=== PATIENT | male | born 1940 | race American Indian/Alaskan Native ===

== ENCOUNTER 2017-10-18 15:17 | Inpatient (IN) | payer MEDICARE ==
[2017-10-19 02:47] VITALS: BMI 26.7
--- NOTE | 2017-10-19 05:09 | CP.PCM.HP ---
History of Present Illness - History of Present Illness History of Present Illness: CC: s/p L sided CVA with speech deficit, R sided weakness HPI: This is a 76 y/o male with known CAD, HTN, HLD, DM2, and newly dx'ed A fib. He had presented [place] [facility] [place]ided facial droop/weakness and speech difficulties on 10/17. He was diagnosed with acute L frontoparietal CVA and was admitted to the hospital. Patient did not have TPA administered nor any acute interventional procedure. He had full workup there, and appears to have been dx' ed at that time with the A fib. He has improved somewhat since that time, and presents here for rehab. Denies CP, SOB, f/c/n/v/d. Still has RUE and RLE weakness, difficulty with speech, and difficulty with swallowing. ROS: 14 systems reviewed, negative other than HPI MHx: HTN, HLD, DM2, CAD, A fib SHx: CABG in the past Allergies: NKDA Medications: per discharge list Family Hx: no relevant findings Social Hx: Lives with family, no tobacco or EtOH Surrogate: , info in chart Present on Admission - Present on Admission Any Indicators Present on Admission: No Past Patient History - Past Medical History & Family History Past Medical History?: Yes - Past Social History Smoking Status: Never Smoked - CARDIAC Hx Hypercholesterolemia: Yes Hx Hypertension: Yes Other/Comment: New onset paroxysmal Afib. - NEUROLOGICAL HX Cerebrovascular Accident: Yes - HEENT Other/Comment: wears eyeglasses. - ENDOCRINE/METABOLIC Hx Diabetes Mellitus Type 2: Yes - HEMATOLOGICAL/ONCOLOGICAL Hx AIDS: No Hx Human Immunodeficiency Virus (HIV): No - MUSCULOSKELETAL/RHEUMATOLOGICAL Hx Falls: Yes (x1 at home 10/12/2017) Hx Unsteady Gait: Yes - GASTROINTESTINAL Hx Gastroesophageal Reflux: Yes - PSYCHIATRIC Hx Substance Use: No - SURGICAL HISTORY Hx Coronary Artery Bypass Graft: Yes (in 2007) - ANESTHESIA Hx Anesthesia: Yes Hx Anesthesia Reactions: No Hx Malignant Hyperthermia: No Has any member of the family had a problem w/ anesthesia?: No Meds Allergies/Adverse Reactions: Allergies Allergy/AdvReac Type Severity Reaction Status Date / Time No Known Allergies Allergy Verified 10/19/17 02:46 Physical Exam - Constitutional Appears: No Acute Distress - Head Exam Head Exam: ATRAUMATIC, NORMOCEPHALIC - Eye Exam Eye Exam: EOMI, PERRL - ENT Exam ENT Exam: Mucous Membranes Moist - Neck Exam Neck exam: Positive for: Full Rom - Respiratory Exam Respiratory Exam: Clear to Auscultation Bilateral, NORMAL BREATHING PATTERN - Cardiovascular Exam Cardiovascular Exam: REGULAR RHYTHM, +S1, +S2 - GI/Abdominal Exam GI & Abdominal Exam: Normal Bowel Sounds, Soft - Extremities Exam Additional comments: RUE and RLE weakness compared to L; still 5/5 strength - Neurological Exam Neurological exam: Alert, CN II-XII Intact, Oriented x3 Additional comments: some speech difficulties - Psychiatric Exam Psychiatric exam: Normal Affect, Normal Mood - Skin Skin Exam: Dry, Warm Results - Vital Signs Recent Vital Signs: Last Vital Signs Temp Pulse 65 10/19/17 02:53 Resp 20 10/19/17 02:53 BP Pulse Ox 98 10/19/17 02:53 Assessment & Plan (1) Status post cerebrovascular accident Assessment and Plan: 76 y/o male with CVA presenting for rehab. 1) s/p CVA -Cont ASA -Rehab consult/PT 2) DM2 -- DM diet, SSI, Accuchecks for now; start LA insulin in AM 3) A fib -- Patient to start Apixiban in 2 weeks per d/c summary from [facility] [place] 4) HTN -- Cont BP medications: hydralazine, valsartan 5) DVT PPx- SQ Lovenox for now Status: Acute (2) DM2 (diabetes mellitus, type 2) Status: Acute (3) HTN (hypertension) Status: Acute (4) A-fib Status: Acute (5) DVT prophylaxis Status: Acute
[2017-10-19] MEDS: Insulin Lispro (humaLOG) 100 Units/ml Inj SC SCH ×4 (06:52→21:26)
[2017-10-19 07:07] LABS: BLOOD UREA NITROGEN 15 mg/dl (9-20); CALCIUM 9.2 mg/dL (8.4-10.2); GFR AFRICAN-AMERICAN > 60; GFR NON-AFRICAN AMERICAN > 60
[2017-10-19] MEDS ORDERED: INSULIN ASPART PROT SC SCH (07:30)
[2017-10-19] MEDS ORDERED: INSULN ASP SC SCH (07:30)
[2017-10-19] MEDS ORDERED: INSULIN ASPART 100 UNIT SC SCH (07:30)
[2017-10-19] MEDS: Insulin Lispro Mix 75/25 100 units/ml (HumaLog) 10ml SC SCH ×2 (08:12→17:36)
[2017-10-19] MEDS: Enoxaparin 40 mg Syringe SC SCH (08:54)
[2017-10-19] MEDS ORDERED: Patient's Own Med (Valsartan [Diovan] 320 MG) PO SCH (09:00)
[2017-10-19] MEDS ORDERED: Patient's Own Med (Famotidine [Pepcid] 40 MG) PO SCH (09:00)
--- NOTE | 2017-10-19 16:45 | PCM.OPOC ---
Physiatry Overall Plan of Care - Overall Plan of Care Estimated Length of Stay in Weeks: 3 Rehab Impairment: Mobility, Gait, Speech, Balance, Coordination Etiologic Diagnosis: Cerebrovascular Accident Rehab/Medical Prognosis: Fair - Anticipated Interventions Physical Therapy:: Yes Occupational Therapy:: Yes Speech Therapy:: Yes Recreational Therapy:: Yes - Therapy Goals Bed Mobility: Contact Guard Ambulation: Supervision Functional Positional Changes:: Supervision - Discharge Plan Discharge Destination: Home
--- NOTE | 2017-10-19 16:47 | CP.PCM.CON ---
History of Present Illness - History of Present Illness History of Present Illness: Dr Veloz PMR consultation on Colin Mishra born 1940, who has been admitted to [facility] for acute inpatient rehabilitation. He is right hand dominant and was independent in ADLs and ambulation with no speech or language deficits [employer]. He had an acute onset of right HP UE>LE and diagnosed with left CVA. MCA distribution. + dysphagia and dysarthria noted Review of Systems - Constitutional Constitutional: absent: Anorexia, Chills - EENT Eyes: absent: Change in Vision Ears: absent: Ear Pain Nose/Mouth/Throat: absent: Nasal Congestion - Cardiovascular Cardiovascular: absent: Chest Pain - Respiratory Respiratory: absent: Dyspnea, Stridor - Gastrointestinal Gastrointestinal: absent: Belching, Bloating - Musculoskeletal Musculoskeletal: absent: Back Pain - Integumentary Integumentary: absent: Bleeding Lesions - Neurological Neurological: Weakness (right UE>LE). absent: Abnormal Movements - Psychiatric Psychiatric: absent: Anxiety Past Patient History - Past Medical History & Family History Past Medical History?: Yes - Past Social History Smoking Status: Never Smoked Alcohol: None Drugs: Denies Home Situation {Lives}: With Family - CARDIAC Hx Cardiac Disorders: Yes Hx Hypercholesterolemia: Yes Hx Hypertension: Yes - NEUROLOGICAL HX Cerebrovascular Accident: Yes - HEENT Other/Comment: wears eyeglasses. - ENDOCRINE/METABOLIC Hx Diabetes Mellitus Type 2: Yes - HEMATOLOGICAL/ONCOLOGICAL Hx AIDS: No Hx Human Immunodeficiency Virus (HIV): No - MUSCULOSKELETAL/RHEUMATOLOGICAL Hx Falls: Yes (x1 at home 10/12/2017) Hx Unsteady Gait: Yes - GASTROINTESTINAL Hx Gastroesophageal Reflux: Yes - PSYCHIATRIC Hx Substance Use: No - SURGICAL HISTORY Hx Coronary Artery Bypass Graft: Yes (in 2007) - ANESTHESIA Hx Anesthesia: Yes Hx Anesthesia Reactions: No Hx Malignant Hyperthermia: No Has any member of the family had a problem w/ anesthesia?: No Meds Allergies/Adverse Reactions: Allergies Allergy/AdvReac Type Severity Reaction Status Date / Time No Known Allergies Allergy Verified 10/19/17 02:46 - Medications Medications: Current Medications Acetaminophen (Tylenol 325mg Tab) 650 mg PO Q6H PRN PRN Reason: Pain, moderate (4-7) Amlodipine Besylate (Norvasc) 10 mg PO DAILY [facility] Last Admin: 10/19/17 08:54 Dose: 10 mg Aspirin (Aspirin Chewable) 81 mg PO DAILY [facility] Last Admin: 10/19/17 08:57 Dose: 81 mg Atorvastatin Calcium (Lipitor) 20 mg PO HS [facility] Enoxaparin Sodium (Lovenox) 40 mg SC DAILY [facility] PRN Reason: Protocol Last Admin: 10/19/17 08:54 Dose: 40 mg Famotidine (Pepcid) 40 mg PO DAILY [facility] Last Admin: 10/19/17 08:56 Dose: 40 mg Hydralazine HCl (Apresoline) 50 mg PO Q8@0100,0900,1700 [facility] Last Admin: 10/19/17 08:53 Dose: 50 mg Insulin Human Lispro (Humalog) 0 units SC ACHS [facility] PRN Reason: Protocol Last Admin: 10/19/17 12:09 Dose: 3 units Insulin Lispro Protam/Lispro Human (Humalog Mix 75/25) 10 units SC ACBD [facility] Last Admin: 10/19/17 08:12 Dose: 10 units Lidocaine HCl (Lidocaine 2% Viscous) 15 ml PO Q6H PRN PRN Reason: pain - mouth sore Valsartan (Diovan) 320 mg PO DAILY [facility] Last Admin: 10/19/17 08:53 Dose: 320 mg Zolpidem Tartrate (Ambien) 5 mg PO HS PRN PRN Reason: Insomnia Physical Exam - Constitutional Appears: Non-toxic, No Acute Distress - Head Exam Head Exam: ATRAUMATIC, NORMAL INSPECTION - Eye Exam Eye Exam: EOMI - ENT Exam ENT Exam: Mucous Membranes Moist - Respiratory Exam Respiratory Exam: NORMAL BREATHING PATTERN. absent: Chest Wall Tenderness - Cardiovascular Exam Cardiovascular Exam: REGULAR RHYTHM - GI/Abdominal Exam GI & Abdominal Exam: absent: Distended - Extremities Exam Extremities exam: Negative for: calf tenderness - Neurological Exam Neurological exam: Alert, Oriented x3 (+ dysarthria) - Psychiatric Exam Psychiatric exam: Normal Affect, Normal Mood - Skin Skin Exam: Warm Results - Vital Signs Recent Vital Signs: Last Vital Signs Temp 97.7 F 10/19/17 08:32 Pulse 60 10/19/17 08:54 Resp 22 10/19/17 08:32 BP 142/51 L 10/19/17 08:54 Pulse Ox 99 10/19/17 08:40 - Labs Result Diagrams: 10/19/17 05:25 Labs: Laboratory Results - last 24 hr 10/19/17 10/19/17 10/19/17 05:25 05:52 11:40 Sodium 138 Potassium 4.2 Chloride 102 Carbon Dioxide 26 Anion Gap 14 BUN 15 Creatinine 0.9 Est GFR ( Amer) > 60 Est GFR (Non-Af Amer) > 60 POC Glucose (mg/dL) 121 H 241 H Random Glucose 127 H Calcium 9.2 10/19/17 16:17 Sodium Potassium Chloride Carbon Dioxide Anion Gap BUN Creatinine Est GFR ( Amer) Est GFR (Non-Af Amer) POC Glucose (mg/dL) 202 H Random Glucose Calcium Assessment & Plan - Assessment and Plan (Free Text) Assessment: 76 year old right hand dominant male, previously independent with multiple risk factors. + left CVA, MCA distribution, right HP PT/OT to continue to help increase functional independence Team conference for d/c planning Pain: controlled Vascular: no evidence of DVT GI: No evidence of constipation or diarrhea Patient is an excellent acute rehabilitation candidate and will have focused speech therapy, PT, OT and recreational therapy to help facilitate a safe and appropriate d/c plan Impairment code: 01.2
[2017-10-20 06:16] LABS: HEMOGLOBIN 13.3 g/dL (12.0-18.0); MEAN CORPUSCULAR HEMOGLOBIN 30.4 pg (27.0-31.0); MEAN CORPUSCULAR HGB CONC 33.1 g/dL (33.0-37.0); RBC 4.37 Mil/uL (4.40-5.90); RED CELL DISTRIBUTION WIDTH 14.2 % (11.5-14.5); WHITE BLOOD COUNT 6.9 K/uL (4.8-10.8)
[2017-10-20] MEDS: Insulin Lispro (humaLOG) 100 Units/ml Inj SC SCH ×4 (06:31→21:31)
[2017-10-20] MEDS: Insulin Lispro Mix 75/25 100 units/ml (HumaLog) 10ml SC SCH ×2 (07:50→16:46)
[2017-10-20] MEDS: Enoxaparin 40 mg Syringe SC SCH (08:17)
--- NOTE | 2017-10-20 17:15 | CP.PCM.PN ---
Subjective - Date & Time of Evaluation Date of Evaluation: 10/20/17 Time of Evaluation: 17:14 - Subjective Subjective: Patient seen in the room in good spirits happy with first day in therapy and worked hard denies sob/cp denies joint pain dysarthria appears to have improved somewhat since last night as well Objective - Vital Signs/Intake and Output Vital Signs (last 24 hours): Temp Pulse Resp BP Pulse Ox 97.6 F 58 L 19 133/59 L 98 10/20/17 08:16 10/20/17 15:05 10/20/17 08:16 10/20/17 13:46 10/20/17 15:05 - Medications Medications: Current Medications Acetaminophen (Tylenol 325mg Tab) 650 mg PO Q6H PRN PRN Reason: Pain Scale 4-10. Amlodipine Besylate (Norvasc) 10 mg PO DAILY [facility] Last Admin: 10/20/17 08:17 Dose: 10 mg Aspirin (Aspirin Chewable) 81 mg PO DAILY [facility] Last Admin: 10/20/17 08:17 Dose: 81 mg Atorvastatin Calcium (Lipitor) 20 mg PO HS [facility] Last Admin: 10/19/17 21:32 Dose: 20 mg Enoxaparin Sodium (Lovenox) 40 mg SC DAILY [facility] PRN Reason: Protocol Last Admin: 10/20/17 08:17 Dose: 40 mg Famotidine (Pepcid) 40 mg PO DAILY [facility] Last Admin: 10/20/17 08:17 Dose: 40 mg Hydralazine HCl (Apresoline) 50 mg PO Q8@0600,1400,2200 [facility] Last Admin: 10/20/17 13:46 Dose: 50 mg Insulin Human Lispro (Humalog) 0 units SC ACHS [facility] PRN Reason: Protocol Last Admin: 10/20/17 16:54 Dose: 3 units Insulin Lispro Protam/Lispro Human (Humalog Mix 75/25) 10 units SC ACBD [facility] Last Admin: 10/20/17 16:46 Dose: 10 units Lidocaine HCl (Lidocaine 2% Viscous) 15 ml PO Q6H PRN PRN Reason: pain - mouth sore Valsartan (Diovan) 320 mg PO DAILY [facility] Last Admin: 10/20/17 08:17 Dose: 320 mg Zolpidem Tartrate (Ambien) 5 mg PO HS PRN PRN Reason: Insomnia Last Admin: 10/19/17 21:57 Dose: 5 mg - Labs Labs: 10/20/17 05:40 10/19/17 05:25
[2017-10-21] MEDS: Insulin Lispro (humaLOG) 100 Units/ml Inj SC SCH ×4 (06:30→21:16)
[2017-10-21] MEDS: Insulin Lispro Mix 75/25 100 units/ml (HumaLog) 10ml SC SCH ×2 (08:58→17:08)
[2017-10-21] MEDS: Enoxaparin 40 mg Syringe SC SCH (08:58)
--- NOTE | 2017-10-21 14:49 | PN ---
DAILY PROGRESS NOTE DATE: 10/20/2017 SUBJECTIVE: The patient is seen today 10/20/2017. He is not in any cardiopulmonary distress. OBJECTIVE: VITAL SIGNS: Blood pressure 120/52, temperature 97.9, respiratory rate 20, and pulse 56. HEENT: Pupils equal and reactive to light. Normal appearing mucosa of the conjunctivae, oropharynx, and nasal membrane mucosa. NECK: Supple. No JVD. No carotid bruit. No lymph node. No thyromegaly. CHEST AND LUNGS: Bilateral symmetrical expansion. Good air exchange. No rales. No rhonchi. CARDIOVASCULAR: PMI not localized. S1 and S2. No additional sounds. ABDOMEN: Normoactive bowel sounds. No tenderness. No organomegaly. No masses. EXTREMITIES: No cyanosis. No clubbing. No edema. CENTRAL NERVOUS SYSTEM: Alert, awake, and oriented x2. The patient has right-sided hemiplegia with distal right upper extremity affected more than the proximal muscles. ASSESSMENT: Cerebrovascular accident, type 2 diabetes mellitus, hypertension, and paroxysmal atrial fibrillation. PLAN: Continue current medications and as per neurology recommendation, we will start anticoagulation 2 weeks after the acute CVA. Continue physical therapy and occupational therapy. Curt Harper MD
--- NOTE | 2017-10-21 17:42 | CP.PCM.PN ---
Subjective - Date & Time of Evaluation Date of Evaluation: 10/21/17 Time of Evaluation: 17:40 - Subjective Subjective: Patient seen in the room doing better with right upper extremity AROM denies cp/sob very appreciative of the care continue current care Objective - Vital Signs/Intake and Output Vital Signs (last 24 hours): Temp Pulse Resp BP Pulse Ox 98.1 F 52 L 18 130/70 97 10/21/17 07:44 10/21/17 13:22 10/21/17 07:44 10/21/17 13:22 10/21/17 10:54 - Medications Medications: Current Medications Acetaminophen (Tylenol 325mg Tab) 650 mg PO Q6H PRN PRN Reason: Pain Scale 4-10. Last Admin: 10/21/17 11:17 Dose: 650 mg Amlodipine Besylate (Norvasc) 10 mg PO DAILY [facility] Last Admin: 10/21/17 12:21 Dose: 10 mg Aspirin (Aspirin Chewable) 81 mg PO DAILY [facility] Last Admin: 10/21/17 08:57 Dose: 81 mg Atorvastatin Calcium (Lipitor) 20 mg PO HS [facility] Last Admin: 10/20/17 21:53 Dose: 20 mg Enoxaparin Sodium (Lovenox) 40 mg SC DAILY [facility] PRN Reason: Protocol Last Admin: 10/21/17 08:58 Dose: 40 mg Famotidine (Pepcid) 40 mg PO DAILY [facility] Last Admin: 10/21/17 08:59 Dose: 40 mg Hydralazine HCl (Apresoline) 50 mg PO Q8@0600,1400,2200 [facility] Last Admin: 10/21/17 13:22 Dose: 50 mg Insulin Human Lispro (Humalog) 0 units SC ACHS [facility] PRN Reason: Protocol Last Admin: 10/21/17 17:09 Dose: 2 units Insulin Lispro Protam/Lispro Human (Humalog Mix 75/25) 10 units SC ACBD [facility] Last Admin: 10/21/17 17:08 Dose: 10 units Lidocaine HCl (Lidocaine 2% Viscous) 15 ml PO Q6H PRN PRN Reason: pain - mouth sore Valsartan (Diovan) 320 mg PO DAILY [facility] Last Admin: 10/21/17 08:58 Dose: 320 mg Zolpidem Tartrate (Ambien) 5 mg PO HS PRN PRN Reason: Insomnia Last Admin: 10/20/17 22:44 Dose: 5 mg - Labs Labs: 10/20/17 05:40 10/19/17 05:25
--- NOTE | 2017-10-21 21:46 | CP.PCM.CON ---
History of Present Illness - History of Present Illness History of Present Illness: I was asked to evalaute patient by Dr Harper. Patient is a 76 year old male with PMH HTN, hypercholesterolemia PAF who presents for rehab. The patient was found to have [place] [facility] [place] MICHELLE was negative for intracardiac thrombus, however given PAF it was recommended that patientbe placed on Eliquis. He will have to wait 2 weeks as per neuro. The patient was noted to be bradycardiac. He denies chest pain. Review of Systems - Constitutional Constitutional: absent: As Per HPI, Anorexia, Chills, Daytime Sleepiness, Excessive Sweating, Fatigue, Fever, Frequent Falls, Headache, Increased Appetite , Lethargy, Malaise, Night Sweats, Snoring, Sleep Apnea, Weight Gain, Weight Loss, Weakness, Other - EENT Eyes: absent: As Per HPI, Blind Spots, Blurred Vision, Change in Vision, Decreased Night Vision, Diplopia, Discharge, Dry Eye, Exophthalmos, Floaters, Irritation, Itchy Eyes, Loss of Peripheral Vision, Pain, Photophobia, Requires Corrective Lenses, Sees Flashes, Spots in Vision, Tunnel Vision, Other Visual Disturbances, Loss of Vision, Other Ears: absent: As Per HPI, Decreased Hearing, Ear Discharge, Ear Pain, Tinnitus, Abnormal Hearing, Disequilibrium, Dizziness, Other Nose/Mouth/Throat: absent: As Per HPI, Epistaxis, Nasal Congestion, Nasal Discharge, Nasal Obstruction, Nasal Trauma, Nose Pain, Post Nasal Drip, Sinus Pain, Sinus Pressure, Bleeding Gums, Change in Voice, Dental Pain, Dry Mouth, Dysphagia, Halitosis, Hoarsness, Lip Swelling, Mouth Lesions, Mouth Pain, Odynophagia, Sore Throat, Throat Swelling, Tongue Swelling, Facial Pain, Neck Pain, Neck Mass, Other - Cardiovascular Cardiovascular: absent: As Per HPI, Acrocyanosis, Chest Pain, Chest Pain at Rest , Chest Pain with Activity, Claudication, Diaphoresis, Dyspnea, Dyspnea on Exertion, Edema, Irregular Heart Rhythm, Pain Radiating to Arm/Neck/Jaw, Leg Edema, Leg Ulcers, Lightheadedness, Orthopnea, Palpitations, Paroxysmal Nocturnal Dyspnea, Pedal Edema, Radiating Pain, Rapid Heart Rate, Slow Heart Rate, Syncope, Other - Respiratory Respiratory: absent: As Per HPI, Cough, Dyspnea, Hemoptysis, Dyspnea on Exertion , Wheezing, Snoring, Stridor, Pain on Inspiration, Chest Congestion, Excessive Mucous Production, Change in Mucous Color, Pain with Coughing, Other - Gastrointestinal Gastrointestinal: absent: As Per HPI, Abdominal Pain, Belching, Bloating, Change in Bowel Habits, Change in Stool Character, Coffee Ground Emesis, Constipation, Cramping, Diarrhea, Dyspepsia, Dysphagia, Early Satiety, Excessive Flatus, Fecal Incontinence, Heartburn, Hematemesis, Hematochezia, Loose Stools, Melena, Nausea, Odynophagia, Temesmus, Vomiting, Other - Genitourinary Genitourinary: absent: As Per HPI, Change in Urinary Stream, Difficulty Urinating, Dysuria, Flank Pain, Hematuria, Pyuria, Nocturia, Urinary Incontinence, Urinary Frequency, Urinary Hesitance, Urinary Urgency, Voiding Freq/Small Amts, Freq UTI, Hx Renal/Bladder Calculi, Hx /Renal Surgery, Bladder Distension, Other - Musculoskeletal Musculoskeletal: absent: As Per HPI, Abnormal Gait, Arthralgias, Atrophy, Back Pain, Deformity, Joint Swelling, Limited Range of Motion, Loss of Height, Muscle Cramps, Muscle Weakness, Myalgias, Neck Pain, Numbness, Radiating Pain into Limb, Stiffness, Tingling, Other - Integumentary Integumentary: absent: As Per HPI, Acne, Alopecia, Bleeding Lesions, Change in Hair, Change in Nails, Change in Pigmentation, Changing Lesions, Dry Skin, Erythema, Furuncle, Hirsutism, Lesions, New Lesions, Non-Healing Lesions, Photosensitivity, Pruritus, Rash, Skin Pain, Skin Ulcer, Sores, Striae, Swelling , Unusual Bruising, Wounds, Jaundice, Other - Neurological Additional comments: RUE weakness - Psychiatric Psychiatric: absent: As Per HPI, Abnormal Sleep Pattern, Anhedonia, Anxiety, Auditory Hallucinations, Behavioral Changes, Change in Appetite, Change in Libido, Confusion, Depression, Difficulty Concentrating, Hallucinations, Homicidal Ideation, Hopelessness, Irritability, Memory Loss, Mood Swings, Panic Attacks, Paranoia, Suicidal Ideation, Visual Hallucinations, Tactile Hallucinations, Other - Endocrine Endocrine: absent: As Per HPI, Change in Body Appearance, Change in Libido, Cold Intolorance, Deepening of Voice, Excessive Sweating, Fatigue, Flushing, Heat Intolorance, Increase in Ring/Shoe/Hat Size, Palpitations, Polydipsia, Polyphagia, Polyuria, Other - Hematologic/Lymphatic Hematologic: absent: As Per HPI, Easy Bleeding, Easy Bruising, Lymphadenopathy, Other Past Patient History - Past Medical History & Family History Past Medical History?: Yes - Past Social History Smoking Status: Never Smoked Alcohol: None Drugs: Denies Home Situation {Lives}: With Family - CARDIAC Hx Cardiac Disorders: Yes Hx Hypercholesterolemia: Yes Hx Hypertension: Yes - NEUROLOGICAL HX Cerebrovascular Accident: Yes - HEENT Other/Comment: wears eyeglasses. - ENDOCRINE/METABOLIC Hx Diabetes Mellitus Type 2: Yes - HEMATOLOGICAL/ONCOLOGICAL Hx AIDS: No Hx Human Immunodeficiency Virus (HIV): No - MUSCULOSKELETAL/RHEUMATOLOGICAL Hx Falls: Yes (x1 at home 10/12/2017) Hx Unsteady Gait: Yes - GASTROINTESTINAL Hx Gastroesophageal Reflux: Yes - PSYCHIATRIC Hx Substance Use: No - SURGICAL HISTORY Hx Coronary Artery Bypass Graft: Yes (in 2007) - ANESTHESIA Hx Anesthesia: Yes Hx Anesthesia Reactions: No Hx Malignant Hyperthermia: No Has any member of the family had a problem w/ anesthesia?: No Meds Allergies/Adverse Reactions: Allergies Allergy/AdvReac Type Severity Reaction Status Date / Time No Known Allergies Allergy Verified 10/19/17 02:46 - Medications Medications: Current Medications Acetaminophen (Tylenol 325mg Tab) 650 mg PO Q6H PRN PRN Reason: Pain Scale 4-10. Last Admin: 10/21/17 11:17 Dose: 650 mg Amlodipine Besylate (Norvasc) 10 mg PO DAILY [facility] Last Admin: 10/21/17 12:21 Dose: 10 mg Aspirin (Aspirin Chewable) 81 mg PO DAILY [facility] Last Admin: 10/21/17 08:57 Dose: 81 mg Atorvastatin Calcium (Lipitor) 20 mg PO HS [facility] Last Admin: 10/21/17 21:22 Dose: 20 mg Enoxaparin Sodium (Lovenox) 40 mg SC DAILY [facility] PRN Reason: Protocol Last Admin: 10/21/17 08:58 Dose: 40 mg Famotidine (Pepcid) 40 mg PO DAILY [facility] Last Admin: 10/21/17 08:59 Dose: 40 mg Hydralazine HCl (Apresoline) 50 mg PO Q8@0600,1400,2200 [facility] Last Admin: 10/21/17 21:22 Dose: 50 mg Insulin Human Lispro (Humalog) 0 units SC ACHS [facility] PRN Reason: Protocol Last Admin: 10/21/17 21:16 Dose: Not Given Insulin Lispro Protam/Lispro Human (Humalog Mix 75/25) 10 units SC ACBD [facility] Last Admin: 10/21/17 17:08 Dose: 10 units Lidocaine HCl (Lidocaine 2% Viscous) 15 ml PO Q6H PRN PRN Reason: pain - mouth sore Valsartan (Diovan) 320 mg PO DAILY [facility] Last Admin: 10/21/17 08:58 Dose: 320 mg Zolpidem Tartrate (Ambien) 5 mg PO HS PRN PRN Reason: Insomnia Last Admin: 10/20/17 22:44 Dose: 5 mg Physical Exam - Constitutional Appears: Non-toxic - Head Exam Head Exam: NORMAL INSPECTION - Eye Exam Eye Exam: Normal appearance - ENT Exam ENT Exam: Mucous Membranes Moist - Neck Exam Neck exam: Positive for: Full Rom - Respiratory Exam Respiratory Exam: Decreased Breath Sounds - Cardiovascular Exam Cardiovascular Exam: Bradycardia, REGULAR RHYTHM - GI/Abdominal Exam GI & Abdominal Exam: Normal Bowel Sounds - Rectal Exam Rectal Exam: Deferred - Extremities Exam Extremities exam: Negative for: pedal edema - Back Exam Back exam: NORMAL INSPECTION - Neurological Exam Neurological exam: Alert, Oriented x3 - Psychiatric Exam Psychiatric exam: Normal Affect - Skin Skin Exam: Normal Color Results - Vital Signs Recent Vital Signs: Last Vital Signs Temp 97.9 F 10/21/17 21:13 Pulse 53 L 10/21/17 21:22 Resp 20 10/21/17 21:13 BP 122/52 L 10/21/17 21:22 Pulse Ox 98 10/21/17 21:13 - Labs Result Diagrams: 10/20/17 05:40 10/19/17 05:25 Labs: Laboratory Results - last 24 hr 10/20/17 10/21/17 10/21/17 22:42 01:51 05:51 POC Glucose (mg/dL) 132 H 116 H 111 H 10/21/17 10/21/17 10/21/17 11:08 16:48 21:16 POC Glucose (mg/dL) 185 H 166 H 86 - EKG Data EKG Interpreted by: Myself Assessment & Plan (1) A-fib Assessment and Plan: rate controlled. He is bradycardic but denies symptoms. will hold AV dexter gaye but no acute indication for PPM. holding anticoagulation as per previous neuro recs . Status: Acute (2) HTN (hypertension) Assessment and Plan: continue antihypertensive tehrapy. Status: Acute (3) Status post cerebrovascular accident Assessment and Plan: continue rehab. juli cardioembolic, will have to wait for 2 weeks given recent CVA. Status: Acute
[2017-10-22] MEDS: Insulin Lispro (humaLOG) 100 Units/ml Inj SC SCH ×4 (06:30→22:06)
[2017-10-22] MEDS: Insulin Lispro Mix 75/25 100 units/ml (HumaLog) 10ml SC SCH ×2 (08:00→16:47)
[2017-10-22] MEDS: Enoxaparin 40 mg Syringe SC SCH (08:43)
--- NOTE | 2017-10-22 16:18 | CP.PCM.PN ---
Subjective - Date & Time of Evaluation Date of Evaluation: 10/22/17 Time of Evaluation: 16:16 - Subjective Subjective: Less bradycardia off rate controlling agents. Objective - Vital Signs/Intake and Output Vital Signs (last 24 hours): Temp Pulse Resp BP Pulse Ox 97.6 F 58 L 21 133/51 L 99 10/22/17 08:12 10/22/17 14:16 10/22/17 08:12 10/22/17 14:16 10/22/17 08:12 - Medications Medications: Current Medications Acetaminophen (Tylenol 325mg Tab) 650 mg PO Q6H PRN PRN Reason: Pain Scale 4-10. Last Admin: 10/21/17 11:17 Dose: 650 mg Amlodipine Besylate (Norvasc) 10 mg PO DAILY [facility] Last Admin: 10/22/17 08:44 Dose: 10 mg Aspirin (Aspirin Chewable) 81 mg PO DAILY [facility] Last Admin: 10/22/17 08:43 Dose: 81 mg Atorvastatin Calcium (Lipitor) 20 mg PO HS [facility] Last Admin: 10/21/17 21:22 Dose: 20 mg Enoxaparin Sodium (Lovenox) 40 mg SC DAILY [facility] PRN Reason: Protocol Last Admin: 10/22/17 08:43 Dose: 40 mg Famotidine (Pepcid) 40 mg PO DAILY [facility] Last Admin: 10/22/17 08:44 Dose: 40 mg Hydralazine HCl (Apresoline) 50 mg PO Q8@0600,1400,2200 [facility] Last Admin: 10/22/17 14:16 Dose: 50 mg Insulin Human Lispro (Humalog) 0 units SC ACHS [facility] PRN Reason: Protocol Last Admin: 10/22/17 12:12 Dose: 2 units Insulin Lispro Protam/Lispro Human (Humalog Mix 75/25) 10 units SC ACBD [facility] Last Admin: 10/22/17 08:00 Dose: 10 units Lidocaine HCl (Lidocaine 2% Viscous) 15 ml PO Q6H PRN PRN Reason: pain - mouth sore Valsartan (Diovan) 320 mg PO DAILY [facility] Last Admin: 10/22/17 08:44 Dose: 320 mg Zolpidem Tartrate (Ambien) 5 mg PO HS PRN PRN Reason: Insomnia Last Admin: 10/21/17 22:08 Dose: 5 mg - Labs Labs: 10/20/17 05:40 10/19/17 05:25 - Constitutional Appears: Well - Head Exam Head Exam: ATRAUMATIC, NORMAL INSPECTION, NORMOCEPHALIC - Eye Exam Eye Exam: EOMI, Normal appearance, PERRL Pupil Exam: NORMAL ACCOMODATION, PERRL - ENT Exam ENT Exam: Mucous Membranes Moist, Normal Exam - Neck Exam Neck Exam: Full ROM, Normal Inspection. absent: Lymphadenopathy - Respiratory Exam Respiratory Exam: Clear to Ausculation Bilateral, NORMAL BREATHING PATTERN. absent: Accessory Muscle Use, Chest Wall Tenderness, Decreased Breath Sounds, Prolonged Expiratory Phase, Rales, Rhonchi, Wheezes, Respiratory Distress, Stridor - Cardiovascular Exam Cardiovascular Exam: Bradycardia, +S1, +S2, Murmur. absent: Tachycardia, Clicks , Diastolic murmur, Gallop, Irregular Rhythm, REGULAR RHYTHM, JVD, RRR, Rubs, + S4 - GI/Abdominal Exam GI & Abdominal Exam: Soft, Normal Bowel Sounds - Extremities Exam Extremities Exam: Full ROM, Normal Capillary Refill, Normal Inspection. absent : Joint Swelling, Pedal Edema - Back Exam Back Exam: NORMAL INSPECTION. absent: CVA tenderness (L), CVA tenderness (R), Full ROM, muscle spasm, paraspinal tenderness, rash noted, tenderness, vertebral tenderness - Neurological Exam Neurological Exam: Alert, Awake, CN II-XII Intact, Oriented x3. absent: Abnormal Gait, Altered, Motor Sensory Deficit, Normal Gait, Reflexes Normal - Psychiatric Exam Psychiatric exam: Normal Affect, Normal Mood. absent: Agitated, Anxious, Depressed, Flat Affect, Homicidal Ideation, Manic, Suicidal Ideation - Skin Skin Exam: Dry, Intact, Normal Color, Warm. absent: Abrasion, Cyanosis, Diaphoretic, Erythema, Mottled, Pallor, Pallor, Petechiae, Rash, Urticaria, Vesicles Assessment and Plan (1) Bradycardia Status: Acute (2) A-fib Status: Acute (3) DM2 (diabetes mellitus, type 2) Status: Acute (4) DVT prophylaxis Status: Acute (5) HTN (hypertension) Status: Acute (6) Status post cerebrovascular accident Status: Acute - Assessment and Plan (Free Text) Plan: continue to monitor off rate controlling agents. bp stable.
--- NOTE | 2017-10-23 00:01 | PN ---
DAILY PROGRESS NOTE DATE: 10/22/2017 SUBJECTIVE: The patient is seen today, 10/22/2017. He is not in any cardiopulmonary distress. OBJECTIVE: VITAL SIGNS: Blood pressure 133/51, temperature 97, respiratory rate 18, and pulse 58. HEENT: Pupils equal and reactive to light. Normal-appearing mucosa of the conjunctivae, oropharynx, and nasal membrane mucosa. NECK: Supple. No JVD. No carotid bruit. No lymph nodes. No thyromegaly. CHEST AND LUNGS: Bilateral symmetrical expansion. Good air exchange. No rales. No rhonchi. CARDIOVASCULAR: PMI not localized, S1 and S2. No additional sounds. ABDOMEN: Normoactive bowel sounds. No tenderness. No organomegaly. No masses. EXTREMITIES: No cyanosis. No clubbing. No edema. CENTRAL NERVOUS SYSTEM: Alert, awake, and oriented x3 and the patient has right-sided weakness upper more than lower extremity. ASSESSMENT: Cerebrovascular accident, hypertension, hypercholesterolemia, and atherosclerotic cerebrovascular and cardiovascular disease. PLAN: Continue current physical therapy and occupational therapy. Continue current medications. Curt Harper MD
[2017-10-23 07:07] LABS: BLOOD UREA NITROGEN 16 mg/dl (9-20); CALCIUM 9.4 mg/dL (8.4-10.2); GFR AFRICAN-AMERICAN > 60; GFR NON-AFRICAN AMERICAN > 60; HEMOGLOBIN 14.3 g/dL (12.0-18.0); MEAN CELL VOLUME 91.9 fl (80.0-94.0); MEAN CORPUSCULAR HEMOGLOBIN 31.3 pg (27.0-31.0); RBC 4.55 Mil/uL (4.40-5.90); RED CELL DISTRIBUTION WIDTH 14.4 % (11.5-14.5); WHITE BLOOD COUNT 6.4 K/uL (4.8-10.8)
[2017-10-23] MEDS: Insulin Lispro (humaLOG) 100 Units/ml Inj SC SCH ×4 (07:38→22:12)
[2017-10-23] MEDS: Insulin Lispro Mix 75/25 100 units/ml (HumaLog) 10ml SC SCH ×2 (07:42→17:08)
[2017-10-23] MEDS: Enoxaparin 40 mg Syringe SC SCH (08:45)
[2017-10-24] MEDS: Insulin Lispro (humaLOG) 100 Units/ml Inj SC SCH ×4 (07:31→21:02)
[2017-10-24] MEDS: Insulin Lispro Mix 75/25 100 units/ml (HumaLog) 10ml SC SCH ×2 (07:33→17:01)
[2017-10-24] MEDS: Enoxaparin 40 mg Syringe SC SCH (08:19)
--- NOTE | 2017-10-24 10:42 | CARD ---
APPROVED REPORT EKG Measurement Heart [id number] <Conclusion> Probable atrial fibrillation Possible Inferior infarct, age undetermined Abnormal ECG baseline artefact is present-recommend repeat
[2017-10-24] MEDS: Artificial Tears Opht Soln OU PRN ×2 (15:34→21:39)
--- NOTE | 2017-10-24 23:39 | PN ---
DAILY PROGRESS NOTE DATE: 10/24/2017 SUBJECTIVE: The patient is seen today, 10/24/2017. He is not in any cardiopulmonary distress. The patient is complaining of dryness of the right eye. OBJECTIVE: VITAL SIGNS: Blood pressure 138/51, temperature 98.1, respiratory rate 20, and pulse 55. HEENT: Pupils equal and reactive to light. Normal-appearing mucosa of the conjunctivae, oropharynx, and nasal membrane mucosa. NECK: Supple. No JVD. No carotid bruit. No lymph node. No thyromegaly. CHEST AND LUNGS: Bilateral symmetrical expansion. Good air exchange. No rales. No rhonchi. CARDIOVASCULAR: PMI not localized. S1 and S2. No additional sounds. ABDOMEN: Normoactive bowel sounds. No tenderness. No organomegaly. No masses. EXTREMITIES: No cyanosis. No clubbing. No edema. CENTRAL NERVOUS SYSTEM: Alert, awake, and oriented x2 and the patient has right upper extremity more than right lower extremity weakness. ASSESSMENT: Cerebrovascular accident, hypertension, and hypercholesterolemia. PLAN: Continue current medications. We will also order artificial tears. Curt Harper MD
[2017-10-25] MEDS: Insulin Lispro (humaLOG) 100 Units/ml Inj SC SCH ×4 (06:30→22:00)
[2017-10-25] MEDS: Insulin Lispro Mix 75/25 100 units/ml (HumaLog) 10ml SC SCH ×2 (07:43→17:07)
[2017-10-25] MEDS: Enoxaparin 40 mg Syringe SC SCH (08:14)
--- NOTE | 2017-10-25 13:20 | PSY.TMCNF ---
Nursing - Vital Signs Vital Signs (Last 8 hours): Vital Signs 10/25/17 10/25/17 10/25/17 06:33 07:34 08:14 Temperature 98.2 F Pulse Rate 55 L 61 Respiratory 20 Rate Blood Pressure 128/51 L 127/41 L 129/54 L O2 Sat by Pulse 98 Oximetry 10/25/17 10/25/17 08:35 09:00 Temperature 98.2 F Pulse Rate 62 61 Respiratory 20 Rate Blood Pressure 129/54 L O2 Sat by Pulse 99 Oximetry Pain: 0 - Precautions: Precautions: Fall Prevention, Aspiration - Medications/Other Issues Comment: NEEDS ENCOURAGEMENT TO USE RIGHT HAND WITH ADL'S - Consults Comment: DR. ESCOBAR, DR. HAYES - Toileting Toileting: Moderate Assistance - Bladder Management Bladder Pattern: Normal Voiding Method: Toilet, Urinal Bladder Management: Supervision Frequency of Accidents: 0 - Bowel Management Bowel Pattern: Normal Bowel Management: Supervision Frequency of Accidents: 0 - Transfers Transfers: Minimal Assistance - ADL's ADL's: Moderate Assistance - Pain Management Comments: TYLENOL PRN - Patient/Family Teaching Comments: CARE POST CVA AND SAFETY PRECAUTIONS - Goals/Time Frame Comments: PER MULTIDISCIPLINARY CARE PLAN AND GOALS - Provider Provider: SOFIYA MOSLEYN RN CRRN Physical Therapy - Bed Mobility Bed Mobility: Contact Guard - Transfers Sit to Stand: Verbal Cues, Contact Guard - Ambulation Level of Assistance: Verbal Cues, Contact Guard Distance (ft.): 150 Assistive Devices: Single point cane - Stair Negotiation Stairs: Level of Assistance: Verbal Cues, Contact Guard Number of Stairs: 12 Stairs: Assistive Devices: Left Handrail - Standing Balance Static Stand: Contact Guard Assist Dynamic Stand: Minimal Assistance - Pain Pain (assessed during therapy session): 4 Management Techniques: Medication, Elevation, Inactivity Comment: R wrist - Insight/Carryover Insight/Carryover: Fair - Patient/Family Education Comment: -adl, transfers and mobility training with assistive devices, compensatory/adaptive strategies. -RUE positioning(elevation) for pain & edema control-via R wrist brace and isotoner glove. -w/c propulsion/brake management. -encourage adl participation. -feeding-check R cheek for pocketting duirng feeding tasks; management of saliva. -rehab/OT goals, plan of care - Assessment/Plan Assessment: Pt is agreeable to participate in 1:1 and group recreation therapy sessions. Pt is oriented to leisure tasks related to memory and speech intelligibility. Pt enjoys participating in [employer] task and is independent with task. Pt requires min-mod verbal cues for carryover of task rules. Pt tolerates duration of sessios and presents stable-positive mood. Pt listens to music in room for diversion. Pt will continue to benefit from participating in recreation therapy sessions to improve weakness and deficits. - Goals Timeframe: 8 days Goals: -Feeding: Mod I--use RUE as stabilizer opening/closing containers/ packages in prep for feeding. -Grooming: I/setup seated; standing with CS at sink. -Upper body dressing: I/setup seated. -Lower body dressing: dons/doffs pants, socks and shoes with Supervision with use of adaptive devices/ strategies. -Upper/lower body bathing: min assist and verbal cues seated/hand held shower. -Toileting: Close/Supervision. -W/C propuslsion: 150 feet + with Mod I; manage B brakes with DS for safety. -RUE strength:increase R wrist strength flex/extensor to 3+/5, R foreign languages professor to 5-10 lbs. -RUE status:decrease R wrist/digit edema to Min level for increase AROM, decrease pain to 2/10 level. -Transfers: <->bed, commode, chair , w/c and shower chair/bench with CS/ Supervision with SPC - Provider Therapist: Jocy Quiles PT DPT License Number: [id number] Occupational Therapy - Arousal/Attention/Orientation Patient Orientation: Person, Place, Time, Appropriate to Age, Appropriate to Situation - ADL/IADL Self Feeding: Supervision, Verbal Cues, Set-up Help Grooming: Supervision, Verbal Cues, Set-up Help Dressing-Upper Extremity: Supervision, Verbal Cues, Set-up Help Dressing-Lower Extremity: Verbal Cues, Set-up Help, Minimal Assistance Comment: Bathing: TBA - Sitting Balance Static Sitting: Independent without upper extremity support Dynamic Sitting: Reaches across midline, Reaches out of base of support, Reaches within base of support, Requires supervision Comment: seated in supported - Transfers Wheelchair to Bed Transfers: Verbal Cues, Set-up Help, Contact Guard, Minimal Assistance Toilet Transfers: Verbal Cues, Set-up Help, Contact Guard, Minimal Assistance Comment: -with use of SPC. -shower chair transfers TBA - Wheelchair Management Level of Assistance: Supervision, Verbal Cues, Set-up Help, Contact Guard Distance (ft.): 150 - Upper Extremity Status Right Upper Extremity Comment: moderate edema noted in R hand /wrist and forearm ; R foreign languages professor-0 lbs Left Upper Extremity Comment: strength 4+/5. L foreign languages professor: 42-lbs - Pain Pain (assessed during therapy session): 4 Alleviating Techniques: Medication, Elevation, Inactivity Comment: R wrist - Insight/Carryover Insight/Carryover: Fair - Patient/Family Education Comment: -adl, transfers and mobility training with assistive devices, compensatory/adaptive strategies. -RUE positioning(elevation) for pain & edema control-via R wrist brace and isotoner glove. -w/c propulsion/brake management. -encourage adl participation. -feeding-check R cheek for pocketting duirng feeding tasks; management of saliva. -rehab/OT goals, plan of care - Assessment/Plan Assessment: Pt is agreeable to participate in 1:1 and group recreation therapy sessions. Pt is oriented to leisure tasks related to memory and speech intelligibility. Pt enjoys participating in [employer] task and is independent with task. Pt requires min-mod verbal cues for carryover of task rules. Pt tolerates duration of sessios and presents stable-positive mood. Pt listens to music in room for diversion. Pt will continue to benefit from participating in recreation therapy sessions to improve weakness and deficits. - Goals Timeframe: 8 days Goals: -Feeding: Mod I--use RUE as stabilizer opening/closing containers/ packages in prep for feeding. -Grooming: I/setup seated; standing with CS at sink. -Upper body dressing: I/setup seated. -Lower body dressing: dons/doffs pants, socks and shoes with Supervision with use of adaptive devices/ strategies. -Upper/lower body bathing: min assist and verbal cues seated/hand held shower. -Toileting: Close/Supervision. -W/C propuslsion: 150 feet + with Mod I; manage B brakes with DS for safety. -RUE strength:increase R wrist strength flex/extensor to 3+/5, R foreign languages professor to 5-10 lbs. -RUE status:decrease R wrist/digit edema to Min level for increase AROM, decrease pain to 2/10 level. -Transfers: <->bed, commode, chair , w/c and shower chair/bench with CS/ Supervision with SPC - Provider Therapist: CARLOS Arellano/Violette License Number: [id number] Speech Therapy - Consult Information Patient on Program: Yes Medical Diagnosis: CVA Treatment Diagnosis: -moderate dysarthria. -mild cognitive deficits. - moderate dysphagia - Assessment Memory Impairment: Mild Speech/Articulation Impairment: Moderate Dysphagia/Swallowing Impairment: Moderate - Plan Assessment: Pt is agreeable to participate in 1:1 and group recreation therapy sessions. Pt is oriented to leisure tasks related to memory and speech intelligibility. Pt enjoys participating in dominoes task and is independent with task. Pt requires min-mod verbal cues for carryover of task rules. Pt tolerates duration of sessios and presents stable-positive mood. Pt listens to music in room for diversion. Pt will continue to benefit from participating in recreation therapy sessions to improve weakness and deficits. - Provider Therapist: Leslie Uribe License Number: [id number] Recreational Therapy - Participation Participation: Participates in Individual and/or Group Sessions - Attendance Attendance: 5-6 times per week - Activities Leisure Activities: Cards and Games - Socialization Level of Socialization: Initiates/interacts freely with care givers and peer - Diversional Time Diversional Time: enjoys dominoes, music - Assessment Assessment/Plan: Pt is agreeable to participate in 1:1 and group recreation therapy sessions. Pt is oriented to leisure tasks related to memory and speech intelligibility. Pt enjoys participating in dominoes task and is independent with task. Pt requires min-mod verbal cues for carryover of task rules. Pt tolerates duration of sessios and presents stable-positive mood. Pt listens to music in room for diversion. Pt will continue to benefit from participating in recreation therapy sessions to improve weakness and deficits. Problems Currently Limiting Participation: R side weakness UE and LE, impaired speech intelligbility, decrease leisure awareness level Goals and Time Frame: Pt will be encouraged to participate in 1:1 and group recreation therapy sessions 3-5x week to improve direction following, speech intelligbility, recalling facts on demand, arousal level, and leisure awareness level. - Provider Therapist: Lisa Casas, [employer] #[id number] Nutrition - Current Diet Current Diet/ Supplement/ Feedings: heart healthy moderate consistent CHO pureed nectar thick liquids - Appetite Percent Meal Consumed: 75-100% - Comments Comments: CARE POST CVA AND SAFETY PRECAUTIONS - Assessment/Goals/Time Frame Assessment/Goals/Time Frame: NEEDS ENCOURAGEMENT TO USE RIGHT HAND WITH ADL'S - Provider Provider: Loraine Keller RD Case Management - Discharge Plan Discharge Plan: Home with significant other/family Rehabilitation Plan - Treatment Plan Treatment Plan: Physical Therapy, Occupational Therapy, Speech, Dietary, Patient /Family Education - Discharge Plan Estimated Date of Discharge: 11/01/17 Discharge to: Home
--- NOTE | 2017-10-25 20:08 | CP.PCM.PN ---
Subjective - Date & Time of Evaluation Date of Evaluation: 10/25/17 Time of Evaluation: 20:07 - Subjective Subjective: Patient seen in the room denies pain better right hand coordination and movement still trying to do most things left handed discussed with staff to employ "constraint-like" therapy continue current care Objective - Vital Signs/Intake and Output Vital Signs (last 24 hours): Temp Pulse Resp BP Pulse Ox 98.2 F 61 20 137/54 L 99 10/25/17 09:00 10/25/17 09:00 10/25/17 09:00 10/25/17 13:49 10/25/17 08:35 - Medications Medications: Current Medications Acetaminophen (Tylenol 325mg Tab) 650 mg PO Q6H PRN PRN Reason: Pain Scale 4-10. Last Admin: 10/25/17 17:00 Dose: 650 mg Amlodipine Besylate (Norvasc) 10 mg PO DAILY [facility] Last Admin: 10/25/17 08:14 Dose: 10 mg Artificial Tears (Artificial Tears) 2 drop OU Q4 PRN PRN Reason: Dry eyes Last Admin: 10/24/17 21:39 Dose: 2 drop Aspirin (Aspirin Chewable) 81 mg PO DAILY [facility] Last Admin: 10/25/17 08:15 Dose: 81 mg Atorvastatin Calcium (Lipitor) 20 mg PO HS [facility] Last Admin: 10/24/17 21:39 Dose: 20 mg Enoxaparin Sodium (Lovenox) 40 mg SC DAILY [facility] PRN Reason: Protocol Last Admin: 10/25/17 08:14 Dose: 40 mg Famotidine (Pepcid) 40 mg PO DAILY [facility] Last Admin: 10/25/17 08:14 Dose: 40 mg Hydralazine HCl (Apresoline) 50 mg PO Q8@0600,1400,2200 [facility] Last Admin: 10/25/17 13:49 Dose: 50 mg Insulin Human Lispro (Humalog) 0 units SC ACHS [facility] PRN Reason: Protocol Last Admin: 10/25/17 17:08 Dose: 3 units Insulin Lispro Protam/Lispro Human (Humalog Mix 75/25) 10 units SC ACBD [facility] Last Admin: 10/25/17 17:07 Dose: 10 units Lidocaine HCl (Lidocaine 2% Viscous) 15 ml PO Q6H PRN PRN Reason: pain - mouth sore Valsartan (Diovan) 320 mg PO DAILY [facility] Last Admin: 10/25/17 08:14 Dose: 320 mg Zolpidem Tartrate (Ambien) 5 mg PO HS PRN PRN Reason: Insomnia Last Admin: 10/24/17 21:49 Dose: 5 mg - Labs Labs: 10/23/17 05:25 10/23/17 05:25
[2017-10-26 06:45] LABS: BLOOD UREA NITROGEN 17 mg/dl (9-20); CALCIUM 9.3 mg/dL (8.4-10.2); GFR AFRICAN-AMERICAN > 60; GFR NON-AFRICAN AMERICAN > 60
[2017-10-26] MEDS: Insulin Lispro (humaLOG) 100 Units/ml Inj SC SCH ×4 (06:45→21:59)
[2017-10-26 06:46] LABS: HEMOGLOBIN 12.8 g/dL (12.0-18.0); MEAN CELL VOLUME 90.7 fl (80.0-94.0); MEAN CORPUSCULAR HEMOGLOBIN 30.7 pg (27.0-31.0); MEAN CORPUSCULAR HGB CONC 33.9 g/dL (33.0-37.0); RBC 4.15 Mil/uL (4.40-5.90); RED CELL DISTRIBUTION WIDTH 13.8 % (11.5-14.5); WHITE BLOOD COUNT 6.8 K/uL (4.8-10.8)
[2017-10-26] MEDS: Insulin Lispro Mix 75/25 100 units/ml (HumaLog) 10ml SC SCH ×2 (07:16→17:04)
[2017-10-26] MEDS: Artificial Tears Opht Soln OU PRN (08:26)
[2017-10-26] MEDS: Enoxaparin 40 mg Syringe SC SCH (08:28)
[2017-10-27] MEDS: Insulin Lispro (humaLOG) 100 Units/ml Inj SC SCH ×4 (06:43→21:00)
[2017-10-27] MEDS: Insulin Lispro Mix 75/25 100 units/ml (HumaLog) 10ml SC SCH ×2 (08:00→17:01)
[2017-10-27] MEDS: Enoxaparin 40 mg Syringe SC SCH (08:28)
--- NOTE | 2017-10-27 13:46 | PN ---
DATE: 10/26/2017 DAILY PROGRESS NOTE SUBJECTIVE: The patient was seen on 10/26/2017 at acute rehabilitation floor. PHYSICAL EXAMINATION: VITAL SIGNS: Blood pressure 130/62, temperature 98.8, respiratory rate 20, and pulse 69. HEENT: Pupils equal and reactive to light. Normal-appearing mucosa of the conjunctivae, oropharynx, and nasal membrane mucosa. NECK: Supple. No JVD. No carotid bruit. No lymph nodes. No thyromegaly. CHEST AND LUNGS: Bilateral symmetrical expansion. Good air exchange. No rales. No rhonchi. CARDIOVASCULAR: PMI not localized, S1 and S2. No additional sounds. ABDOMEN: Normoactive bowel sounds. No tenderness. No organomegaly. No masses. EXTREMITIES: No cyanosis. No clubbing. No edema. STATION MECHANIC: Alert, awake, and oriented x2. There is right-sided weakness. ASSESSMENT: Cerebrovascular accident, hypertension, hypercholesterolemia, atherosclerotic cardiovascular and cerebrovascular disease, and type 2 diabetes mellitus. PLAN: Continue current physical therapy and occupational therapy. Continue Accu-Cheks with insulin coverage. Curt Harper MD
[2017-10-27] MEDS: Artificial Tears Opht Soln OU PRN ×2 (16:15→21:11)
--- NOTE | 2017-10-27 18:55 | CP.PCM.PN ---
Subjective - Date & Time of Evaluation Date of Evaluation: 10/27/17 Time of Evaluation: 18:54 - Subjective Subjective: Patient seen in the room with his present can raise arm above head right thumb is the most tight fair ROM passively of the other fingers continue current care Objective - Vital Signs/Intake and Output Vital Signs (last 24 hours): Temp Pulse Resp BP Pulse Ox 97.9 F 60 20 124/50 L 100 10/27/17 08:00 10/27/17 14:18 10/27/17 08:00 10/27/17 14:18 10/27/17 08:00 - Medications Medications: Current Medications Acetaminophen (Tylenol 325mg Tab) 650 mg PO Q6H PRN PRN Reason: Pain Scale 4-10. Last Admin: 10/26/17 13:40 Dose: 650 mg Amlodipine Besylate (Norvasc) 10 mg PO DAILY [facility] Last Admin: 10/27/17 08:29 Dose: 10 mg Artificial Tears (Artificial Tears) 2 drop OU Q4 PRN PRN Reason: Dry eyes Last Admin: 10/27/17 16:15 Dose: 2 drop Aspirin (Aspirin Chewable) 81 mg PO DAILY [facility] Last Admin: 10/27/17 08:30 Dose: 81 mg Atorvastatin Calcium (Lipitor) 20 mg PO HS [facility] Last Admin: 10/26/17 21:59 Dose: 20 mg Enoxaparin Sodium (Lovenox) 40 mg SC DAILY [facility] PRN Reason: Protocol Famotidine (Pepcid) 40 mg PO DAILY [facility] Last Admin: 10/27/17 08:31 Dose: 40 mg Hydralazine HCl (Apresoline) 50 mg PO Q8@0600,1400,2200 [facility] Last Admin: 10/27/17 14:18 Dose: 50 mg Insulin Human Lispro (Humalog) 0 units SC ACHS [facility] PRN Reason: Protocol Last Admin: 10/27/17 17:02 Dose: 2 units Insulin Lispro Protam/Lispro Human (Humalog Mix 75/25) 10 units SC ACBD [facility] Last Admin: 10/27/17 17:01 Dose: 10 units Lidocaine HCl (Lidocaine 2% Viscous) 15 ml PO Q6H PRN PRN Reason: pain - mouth sore Valsartan (Diovan) 320 mg PO DAILY [facility] Last Admin: 10/27/17 08:31 Dose: 320 mg Zolpidem Tartrate (Ambien) 10 mg PO HS PRN PRN Reason: Insomnia Last Admin: 10/26/17 22:31 Dose: 10 mg - Labs Labs: 10/26/17 05:25 10/26/17 05:25
[2017-10-28] MEDS: Insulin Lispro (humaLOG) 100 Units/ml Inj SC SCH ×4 (06:30→21:21)
[2017-10-28] MEDS: Insulin Lispro Mix 75/25 100 units/ml (HumaLog) 10ml SC SCH ×2 (07:30→17:00)
[2017-10-28] MEDS: Enoxaparin 40 mg Syringe SC SCH (08:31)
[2017-10-28] MEDS ORDERED: Barium Sulfate Susp 0.1% w/v, 0.1% w/w 450 mL Bottle PO ONE (13:18)
--- NOTE | 2017-10-28 14:26 | PN ---
DATE: 10/28/2017 DAILY PROGRESS NOTE SUBJECTIVE: The patient is seen today on 10/28/2017. He is not in any cardiopulmonary distress. The patient was seen during physical therapy and he is cooperative. OBJECTIVE: VITAL SIGNS: Blood pressure 150/80, temperature 97.7, respiratory rate 20, and pulse 60. HEENT: Pupils equal, reactive to light. Normal appearing mucosa of the conjunctivae, oropharynx and nasal membrane mucosa. NECK: Supple. No JVD. No carotid bruit. No lymph nodes. No thyromegaly. CHEST AND LUNGS: Bilateral symmetrical expansion. Good air exchange. No rales, no rhonchi. CARDIOVASCULAR: PMI not localized. S1 and S2. No additional sounds. ABDOMEN: Normoactive bowel sounds. No tenderness. No organomegaly. No masses. EXTREMITIES: No cyanosis, no clubbing, no edema. CENTRAL NERVOUS SYSTEM: Alert, awake, and oriented x2. Right-sided hemiparesis. ASSESSMENT: Cerebrovascular accident with right-sided weakness, hypertension, type 2 diabetes mellitus, and hypercholesterolemia. PLAN: Continue current medications and physical therapy and occupational therapy. Curt Harper MD
--- NOTE | 2017-10-28 14:53 | RAD ---
PROCEDURE: Modified barium swallow study. HISTORY: aspiration COMPARISON: None available. TECHNIQUE: Under fluoroscopic guidance, barium meals of various consistency were administered to the patient by the speech pathologist. FINDINGS: No penetration or aspiration was observed during this study. IMPRESSION: No penetration or aspiration observed. Please refer to the detailed report and recommendations of the speech pathologist.
[2017-10-28] MEDS: Artificial Tears Opht Soln OU PRN (21:19)
[2017-10-29] MEDS: Insulin Lispro (humaLOG) 100 Units/ml Inj SC SCH ×4 (06:44→22:15)
[2017-10-29 08:00] LABS: MEAN CORPUSCULAR HGB CONC 34.1 g/dL (33.0-37.0); RBC 4.2 Mil/uL (4.40-5.90); RED CELL DISTRIBUTION WIDTH 13.8 % (11.5-14.5)
[2017-10-29] MEDS: Enoxaparin 40 mg Syringe SC SCH (08:17)
[2017-10-29] MEDS: Insulin Lispro Mix 75/25 100 units/ml (HumaLog) 10ml SC SCH ×2 (08:18→16:56)
[2017-10-29 08:30] LABS: BLOOD UREA NITROGEN 13 mg/dl (9-20); CALCIUM 9.4 mg/dL (8.4-10.2); GFR AFRICAN-AMERICAN > 60; GFR NON-AFRICAN AMERICAN > 60
--- NOTE | 2017-10-29 11:24 | CP.PCM.PN ---
Subjective - Date & Time of Evaluation Date of Evaluation: 10/29/17 Time of Evaluation: 08:00 - Subjective Subjective: no acute complaints at present Objective - Vital Signs/Intake and Output Vital Signs (last 24 hours): Temp Pulse Resp BP Pulse Ox 96.8 F L 58 L 20 133/60 99 10/29/17 07:52 10/29/17 08:17 10/29/17 07:52 10/29/17 08:17 10/29/17 07:52 - Medications Medications: Current Medications Acetaminophen (Tylenol 325mg Tab) 650 mg PO Q6H PRN PRN Reason: Pain Scale 4-10. Last Admin: 10/28/17 19:07 Dose: 650 mg Amlodipine Besylate (Norvasc) 10 mg PO DAILY [facility] Last Admin: 10/29/17 08:17 Dose: 10 mg Artificial Tears (Artificial Tears) 2 drop OU Q4 PRN PRN Reason: Dry eyes Last Admin: 10/28/17 21:19 Dose: 2 drop Aspirin (Aspirin Chewable) 81 mg PO DAILY [facility] Last Admin: 10/29/17 08:19 Dose: 81 mg Atorvastatin Calcium (Lipitor) 20 mg PO HS [facility] Last Admin: 10/28/17 21:20 Dose: 20 mg Enoxaparin Sodium (Lovenox) 40 mg SC DAILY [facility] PRN Reason: Protocol Last Admin: 10/29/17 08:17 Dose: 40 mg Famotidine (Pepcid) 40 mg PO DAILY [facility] Last Admin: 10/29/17 08:18 Dose: 40 mg Hydralazine HCl (Apresoline) 50 mg PO Q8@0600,1400,2200 [facility] Last Admin: 10/29/17 06:42 Dose: Not Given Insulin Human Lispro (Humalog) 0 units SC ACHS [facility] PRN Reason: Protocol Last Admin: 10/29/17 06:44 Dose: Not Given Insulin Lispro Protam/Lispro Human (Humalog Mix 75/25) 10 units SC ACBD [facility] Last Admin: 10/29/17 08:18 Dose: 10 units Lidocaine HCl (Lidocaine 2% Viscous) 15 ml PO Q6H PRN PRN Reason: pain - mouth sore Valsartan (Diovan) 320 mg PO DAILY [facility] Last Admin: 10/29/17 08:19 Dose: 320 mg Zolpidem Tartrate (Ambien) 10 mg PO HS PRN PRN Reason: Insomnia Last Admin: 10/28/17 22:52 Dose: 10 mg - Labs Labs: 10/29/17 05:30 10/29/17 05:30 - Head Exam Head Exam: ATRAUMATIC, NORMAL INSPECTION, NORMOCEPHALIC - Eye Exam Eye Exam: EOMI, Normal appearance, PERRL Pupil Exam: NORMAL ACCOMODATION - ENT Exam ENT Exam: Mucous Membranes Moist, Normal Exam - Neck Exam Neck Exam: Normal Inspection - Respiratory Exam Respiratory Exam: NORMAL BREATHING PATTERN - Cardiovascular Exam Cardiovascular Exam: REGULAR RHYTHM - Exam External exam: NORMAL EXTERNAL EXAM - Extremities Exam Extremities Exam: Full ROM, Normal Capillary Refill, Normal Inspection - Back Exam Back Exam: NORMAL INSPECTION - Neurological Exam Neurological Exam: Alert, Awake - Psychiatric Exam Psychiatric exam: Normal Affect, Normal Mood - Skin Skin Exam: Dry, Intact Assessment and Plan (1) A-fib Status: Acute (2) Bradycardia Status: Acute (3) DM2 (diabetes mellitus, type 2) Status: Acute (4) DVT prophylaxis Status: Acute (5) HTN (hypertension) Assessment & Plan: cva, plan for pt, ot res and speech therapy covering for Dr hester Status: Acute
[2017-10-30] MEDS: Insulin Lispro (humaLOG) 100 Units/ml Inj SC SCH ×4 (07:28→21:14)
[2017-10-30] MEDS: Enoxaparin 40 mg Syringe SC SCH (08:27)
[2017-10-30] MEDS: Insulin Lispro Mix 75/25 100 units/ml (HumaLog) 10ml SC SCH ×2 (08:27→16:43)
[2017-10-30] MEDS: Artificial Tears Opht Soln OU PRN (11:53)
[2017-10-31] MEDS: Insulin Lispro (humaLOG) 100 Units/ml Inj SC SCH ×4 (06:37→21:52)
[2017-10-31] MEDS: Insulin Lispro Mix 75/25 100 units/ml (HumaLog) 10ml SC SCH ×2 (07:25→16:54)
[2017-10-31] MEDS: Enoxaparin 40 mg Syringe SC SCH (08:51)
--- NOTE | 2017-10-31 18:17 | CP.PCM.PN ---
Subjective - Date & Time of Evaluation Date of Evaluation: 10/31/17 Time of Evaluation: 18:16 - Subjective Subjective: Patient seen in the room doing really well full AROM at the shoulder now but still stiff in the fingers ambulating 200' SC CS continue current care no pain or sob Objective - Vital Signs/Intake and Output Vital Signs (last 24 hours): Temp Pulse Resp BP Pulse Ox 98.3 F 99 H 20 117/55 L 64 L 10/31/17 08:12 10/31/17 14:06 10/31/17 08:12 10/31/17 13:17 10/31/17 14:06 - Medications Medications: Current Medications Acetaminophen (Tylenol 325mg Tab) 650 mg PO Q6H PRN PRN Reason: Pain Scale 4-10. Last Admin: 10/31/17 13:17 Dose: 650 mg Amlodipine Besylate (Norvasc) 10 mg PO DAILY [facility] Last Admin: 10/31/17 08:52 Dose: 10 mg Artificial Tears (Artificial Tears) 2 drop OU Q4 PRN PRN Reason: Dry eyes Last Admin: 10/30/17 11:53 Dose: 2 drop Aspirin (Aspirin Chewable) 81 mg PO DAILY [facility] Last Admin: 10/31/17 08:51 Dose: 81 mg Atorvastatin Calcium (Lipitor) 20 mg PO HS [facility] Last Admin: 10/30/17 21:13 Dose: 20 mg Enoxaparin Sodium (Lovenox) 40 mg SC DAILY [facility] PRN Reason: Protocol Last Admin: 10/31/17 08:51 Dose: 40 mg Famotidine (Pepcid) 40 mg PO DAILY [facility] Last Admin: 10/31/17 08:51 Dose: 40 mg Hydralazine HCl (Apresoline) 50 mg PO Q8@0600,1400,2200 [facility] Last Admin: 10/31/17 13:17 Dose: 50 mg Insulin Human Lispro (Humalog) 0 units SC ACHS [facility] PRN Reason: Protocol Last Admin: 10/31/17 16:55 Dose: 2 units Insulin Lispro Protam/Lispro Human (Humalog Mix 75/25) 10 units SC ACBD [facility] Last Admin: 10/31/17 16:54 Dose: 10 units Lidocaine HCl (Lidocaine 2% Viscous) 15 ml PO Q6H PRN PRN Reason: pain - mouth sore Valsartan (Diovan) 320 mg PO DAILY [facility] Last Admin: 10/31/17 08:51 Dose: 320 mg Zolpidem Tartrate (Ambien) 10 mg PO HS PRN PRN Reason: Insomnia Last Admin: 10/30/17 22:33 Dose: 10 mg - Labs Labs: 10/29/17 05:30 10/29/17 05:30
[2017-10-31 20:21] VITALS: O2SAT 98
--- NOTE | 2017-10-31 21:55 | PN ---
DAILY PROGRESS NOTE DATE: 10/31/2017 SUBJECTIVE: The patient is seen today, 10/31/2017. He is not in any cardiopulmonary distress. The patient is cooperative to physical therapy and occupational therapy. OBJECTIVE: VITAL SIGNS: Blood pressure is 136/84, temperature 98.3, respiratory rate 20, and pulse 90. HEENT: Pupils equal and reactive to light. Normal-appearing mucosa of the conjunctivae, oropharynx and nasal membrane mucosa. NECK: Supple. No JVD. No carotid bruit. No lymph node. No thyromegaly. CHEST AND LUNGS: Bilateral symmetrical expansion. Good air exchange. No rales. No rhonchi. CARDIOVASCULAR: PMI not localized. S1 and S2. No additional sounds. ABDOMEN: Normoactive bowel sounds. No tenderness. No organomegaly. No masses. EXTREMITIES: No cyanosis. No clubbing. No edema. CENTRAL NERVOUS SYSTEM: Alert, awake, and oriented x2 and the patient has right-sided weakness. ASSESSMENT: 1. Cerebrovascular accident with right-sided weakness. 2. Hypertension. 3. Type 2 diabetes mellitus. 4. Atherosclerotic cerebrovascular and cardiovascular disease. PLAN: Continue current medications, physical therapy, and occupational therapy and discharge planning. Curt Harper MD
[2017-11-01] MEDS: Insulin Lispro (humaLOG) 100 Units/ml Inj SC SCH ×2 (07:28→12:26)
[2017-11-01] MEDS: Insulin Lispro Mix 75/25 100 units/ml (HumaLog) 10ml SC SCH (07:30)
[2017-11-01 08:20] VITALS: PULSE 67; RESP 20; TEMP 98.7
[2017-11-01] MEDS: Enoxaparin 40 mg Syringe SC SCH (08:24)
[2017-11-01 08:25] VITALS: BP 125/55
--- NOTE | 2017-11-01 16:36 | PN ---
DATE: PHYSIATRY PROGRESS NOTE Covering for Dr. Veloz. SUBJECTIVE: The patient is feeling fine. A 76-year-old male patient, no acute complaints at present. The patient with diagnosis of acute CVA, status post right-sided hemiparesis. PHYSICAL EXAMINATION: VITAL SIGNS: Stable. NECK: Supple. CHEST: Symmetrical. HEART: Sounds S1 and S2. ABDOMEN: Abdominal area is benign. EXTREMITIES: No clubbing, cyanosis or edema. IMPRESSION: The patient with acute cerebrovascular accident and right hemiparesis. PLAN: Plan for discharge today with family to get additional services. After discharge, the patient to also get equipment needs and to follow up with medical physician in 1-2 weeks. Jony Loyola MD
--- NOTE | 2017-11-02 04:24 | DS ---
REASON FOR ADMISSION: This is a 76-year-old male who was admitted to acute rehabilitation after CVA. COURSE OF HOSPITALIZATION: The patient was admitted to acute rehab at [facility]. The patient was continued on physical therapy, speech therapy, and occupational therapy. The patient was continued on Accu-Cheks as well as on insulin coverage and his antihypertensive medications. The patient did well and he was discharged home to continue current medications and follow with his primary care physician, Dr. Jett. FINAL DIAGNOSES: Cerebrovascular accident, hypertension, and type 2 diabetes mellitus. [facility] MD [place]
== END 2017-11-01 14:54 | disposition home or self-care (01) | DRG 57 ==
PROVIDERS: ADMIT Internal Medicine; ATTEND Internal Medicine
PROC: F07Z9FZ Gait Training/Functional Ambulation Treatment using Assistive, Adaptive, Supportive or Protective Equipment (ICD-10-PCS; principal; 2017-10-19)
PROC: F07M6FZ Therapeutic Exercise Treatment of Musculoskeletal System - Whole Body using Assistive, Adaptive, Supportive or Protective Equipment (ICD-10-PCS; 2017-10-19)
PROC: F08Z4FZ Home Management Treatment using Assistive, Adaptive, Supportive or Protective Equipment (ICD-10-PCS; 2017-10-19)
PROC: F06Z6ZZ Communicative/Cognitive Integration Skills Treatment (ICD-10-PCS; 2017-10-19)
DX: I69.351 Hemiplegia and hemiparesis following cerebral infarction affecting right dominant side (principal); E11.9 Type 2 diabetes mellitus without complications; E78.00 Pure hypercholesterolemia, unspecified; E78.5 Hyperlipidemia, unspecified; I10 Essential (primary) hypertension; I25.10 Atherosclerotic heart disease of native coronary artery without angina pectoris; I48.0 Paroxysmal atrial fibrillation; K21.9 Gastro-esophageal reflux disease without esophagitis; I69.391 Dysphagia following cerebral infarction; Z95.1 Presence of aortocoronary bypass graft; I69.392 Facial weakness following cerebral infarction; R00.1 Bradycardia, unspecified; R26.81 Unsteadiness on feet; I69.322 Dysarthria following cerebral infarction